=== PATIENT | female | born 1995 | race Caucasian/White ===

== ENCOUNTER 2020-12-30 20:22 | Emergency (ER) | payer OTHER ==
[~2020-12-30] VITALS: Ht 165.1 cm; Wt 54.4 kg
[2020-12-30] MEDS ORDERED: AMOCLA875 PO (21:09)
== END 2020-12-30 21:43 | disposition home or self-care (01) ==
LOC: ER 20:22
DX: G89.18 Other acute postprocedural pain (principal); K08.89 Other specified disorders of teeth and supporting structures; Z79.899 Other long term (current) drug therapy
CPT/HCPCS: 99282; A9270